=== PATIENT | female | born 1980 | race Two or more races ===

== ENCOUNTER 2018-07-15 13:11 | Day surgery (SDC) | payer SELFPAY ==
[~2018-07-15 13:11] MED LIST: HYDROmorphone 2 MG/ML VIAL IV PRN; IV RINGERS,LACTATED 1000ML 1,000 ML IV SCH; LIDOCAINE 1% PF 2 ML VIAL. ID PRN; MORPHINE SULFATE 2 MG/ML VIAL. IV PRN; ONDANSETRON PF 4 MG/2 ML VIAL. IV PRN; PROCHLORPERAZINE 10 MG/2 ML VIAL. IV PRN; fentaNYL PF VIAL 100 MCG/2 ML VIAL IV PRN
[2018-07-15 14:04] LABS: U PREG PATIENT NEGATIVE (NEG)
[2018-07-15] MEDS ORDERED: ePHEDrine PF IN SALINE 50 MG/5 ML DISP.SYRIN IV ONE ×2 (14:30→15:14)
[2018-07-15] MEDS ORDERED: DEXAMETHASONE SOD PHOS 20 MG/5 ML VIAL. ONE (14:31)
[2018-07-15] MEDS ORDERED: LIDOCAINE 2% PF Vial for OR 5 ML VIAL. ONE (14:31)
[2018-07-15] MEDS ORDERED: PROPOFOL 20 ML IV ONE (14:31)
[2018-07-15] MEDS ORDERED: ONDANSETRON PF 4 MG/2 ML VIAL. ONE (14:31)
[2018-07-15] MEDS ORDERED: MIDAZOLAM HCL/PF 2 MG/2 ML VIAL. ONE (14:32)
[2018-07-15] MEDS ORDERED: fentaNYL PF VIAL 100 MCG/2 ML VIAL ONE (14:32)
--- NOTE | 2018-07-15 15:46 | PDOC ---
BRIEF OPERATIVE NOTE Date: Jul 15, 2018 Pre-Op Diagnosis retained IUD Post-Op Diagnosis same Procedure Performed hysteroscopic removal Surgeon Meggan Anesthesia Type: General Blood Loss 20ccc Specimens Obtained IUD Complications None Operative Note Same KIAH HERNANDEZ MD Jul 15, 2018 15:46
[2018-07-15] MEDS ORDERED: NAPR-514 PO (15:51)
[2018-07-15] MEDS ORDERED: HYDR-971 PO (15:51)
[2018-07-15] MEDS ORDERED: METR250T PO (15:58)
[2018-07-15] MEDS ORDERED: HYDROcodone/APAP 5/325MG 1 TAB TABLET ONE (17:18)
[2018-07-15] MEDS ORDERED: HYDROcodone/APAP 5/325MG 1 TAB TABLET PO ONE (17:30)
[2018-07-15 17:38] VITALS: BP 115/75
--- NOTE | 2018-07-23 10:08 | PATHOLOGY ---
[facility] Accession Number: [id number] . 01 Material submitted: . IUD . 01 Clinician provided ICD-10: n . 01 Clinical history: . Embedded IUD . 02 Diagnosis: Intrauterine device (Gross only). . (JPM:vjm;07/22/2018) AGA/07/23/2018 . 02 Electronically signed: . Francisco Sheth MD, Pathologist NPI- [id number] . 01 Gross description: . Received fresh labeled "Irina Silverio, IUD," is a fragmented intrauterine device consisting of white plastic and grossly oxidized metallic material measuring 3.5 x 3.4 x 0.3 cm in greatest dimensions. All parts of the device appear to be present. A gross photograph is taken. Tissue is not submitted. ([facility]; 07/17/2018) XDC/XDC . 02 Pathologist provided ICD-10: Z30.432 . 02 CPT . 388192 Specimen Comment: A courtesy copy of this report has been sent to Specimen Comment: [phone]. Specimen Comment: Report sent to Performed at: [facility] [address], [place] [id number] MD Gary Zazueta MD Phone: [phone] Performed at: [facility] [address] [place], [place] [id number] MD Francisco Sheth MD Phone: [phone]
--- NOTE | 2018-07-29 08:13 | OP ---
DATE OF SURGERY: 07/15/2018 PREOPERATIVE DIAGNOSIS: Retained intrauterine device. POSTOPERATIVE DIAGNOSES: Retained intrauterine device. PROCEDURE: Hysteroscopic removal of IUD. SURGEON: Peterson Broderick M.D. VISITING TEACHER: None. ANESTHESIA: General. ESTIMATED BLOOD LOSS: 20 mL. FLUIDS: Crystalloid. SPECIMENS: IUD. COMPLICATIONS: None. CONDITION: Stable. DESCRIPTION OF PROCEDURE: After risks, benefits, indications, alternatives discussed in detail with the patient, the patient was brought to OR theater, placed in a dorsal lithotomy position in [facility]. After adequate general anesthesia, the patient was prepped and draped in usual sterile manner. The cervix was dilated up with Nathaly dilators. After placing the posterior weighted speculum in the vaginal vault, grasped the cervix with a single tooth tenaculum. This was dilated up to receive the operative hysteroscope. Operative hysteroscope was placed. IUD was visualized. A hysteroscopic grasper was placed through the channel, and the IUD was grabbed as being secondary to the tail being embedded into the cervical canal. The wings were grasped and was disjointed from the base of the disjoint from the tail of IUD. These were done x 2 to retrieve both the wings. The wings were retrieved. The tail of IUD was grasped and with general forward force, the tail of the IUD was able to be removed from its embedding, embedding this into the cervical canal, and it was retrieved separately. The IUD was then assessed to be completely removed by visualizing the IUD once ____ back together and looking for any additional pieces within the cervical canal or uterine cavity. The IUD appeared to be complete and intact. No further pieces were noted in the uterine cavity. The procedure was terminated. The hysteroscope was removed. Single tooth tenaculum was removed. Puncture sites were hemostatic. Vaginal vault was wiped clean of any blood or debris. Posterior weighted speculum was removed. Sponge and instrument counts were correct x 2 per nursing staff. The patient went to postop anesthesia recovery in stable condition. PETERSON BRODERICK MD DR: TOSHA/charlie JOB#: [id number] / [id number]
== END 2018-07-15 17:46 | disposition home or self-care (01) ==
LOC: SURG 13:11
PROVIDERS: ATTEND Specialist
DX: Z30.432 Encounter for removal of intrauterine contraceptive device (principal)
CPT/HCPCS: 58562; 81025; 88300; J1100; J2001; J2250; J2405; J2704; J3010; J7030